=== PATIENT | male | born 1980 | race Caucasian/White ===

== ENCOUNTER 2020-08-03 17:00 | Emergency (ER) | payer OTHER, SELFPAY ==
[2020-08-03 17:01] VITALS: BP 83/64; PULSE 96; RESP 14; TEMP 36.9; O2SAT 94; BMI 28.2
[2020-08-03 17:09] VITALS: BP 92/62; PULSE 96; RESP 18; O2SAT 92
[2020-08-03 17:10] VITALS: O2SAT 91
[2020-08-03 17:11] VITALS: O2SAT 91
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
[2020-08-03 17:15] VITALS: BP 91/52; PULSE 91; RESP 18; O2SAT 94
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
[2020-08-03 17:43] LABS: Basophils # 0.1 10^3/uL (0.0-0.1); Basophils % 0.9 %; Eosinophils # 0.1 10^3/uL (0.0-0.8); Eosinophils % 1.1 %; Hematocrit 39.6 % (42.0-52.0); Hemoglobin 13.5 g/dL (11.7-16.6); Lymphocytes # 4.1 10^3/uL (0.8-4.8); Lymphocytes % 46.4 %; Mean Corpuscular HGB Conc 34.1 g/dL (30.0-36.0); Mean Corpuscular Hemoglobin 32.6 pg (28.0-34.0); Mean Corpuscular Volume 95.7 fL (80-94); Mean Platelet Volume 10.5 fL (7.4-10.4); Monocytes # 0.8 10^3/uL (0.2-0.9); Monocytes % 8.8 %; Neutrophils # 3.66 10^3/uL (1.8-7.7); Neutrophils % 42.1 %; Nucleated Red Blood Cells % 0 %; Platelet Count 225 10^3/cmm (130-400); Red Blood Count 4.14 10^6/uL (4.1-5.3); Red Cell Distribution Width 12.1 % (12.1-15.1); White Blood Count 8.7 10^3/uL (4.0-10.0)
[2020-08-03 18:02] LABS: Alanine Aminotransferase 156 U/L (0-41); Albumin Level 4.2 g/dL (3.5-5.2); Alcohol Level 94 mg/dL (0-10); Alkaline Phosphatase 65 IU/L (40-130); Anion Gap 18.9 (5-19); Aspartate Amino Transferase 261 U/L (0-40); Blood Urea Nitrogen 17 mg/dL (6-20); Carbon Dioxide 21 mmol/L (22-29); Chloride 95 mmol/L (98-107); Globulin 2.2 g/dL (1.3-4.6); Glomerular Filtration Rate 123.7 mL/min (90-130); Glucose 137 mg/dL (65-115); Osmolality Calculated 276 mOsm/kg (285-295); Potassium 3.9 mmol/L (3.5-5.1); Sodium 131 mmol/L (136-145); Total Bilirubin 0.3 mg/dL (0.15-1.2); Total Protein 6.4 g/dL (6.6-8.7)
[2020-08-03 18:03] LABS: Lactate (Lactic Acid level) 4.2 mmol/L (0.5-2.2)
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
[2020-08-03 18:16] LABS: Specific Gravity, Urine 1.025 (1.005-1.030); Urine Appearance Clear (CLEAR); Urine Color Yellow (Yellow); pH Urine 5 (5-7)
[2020-08-03 18:17] LABS: Add Urine Microscopic? YES; Bilirubin Urine Neg (Negative); Blood Urine Neg (Negative); Glucose Urine UA 2+ (Normal); Ketones Urine 1+ (Negative); Leukocyte Esterase Urine Negative (Negative); Nitrate Urine Negative (Negative); Protein Urine 1+ (Negative); Urobilinogen Urine Norm (Negative)
[2020-08-03 18:26] LABS: Amphetamines Screen Urine Positive (Negative); Barbiturates Screen Urine Negative (Negative); Benzodiazepines Screen Urine Positive (Negative); Cocaine Screen Urine Negative (Negative); Opiate Screen Urine Negative (Negative); PCP Screen Urine Negative (Negative); THC Screen Urine Positive (Negative); WBC Urine 0-4 /hpf (0-5)
[2020-08-03 18:27] LABS: Add Urine Culture? No; Amorphous Sediment Urine 2+ /hpf; Bacteria Urine TRACE /hpf; Mucus Urine 1+ /hpf
[2020-08-03] MEDS: sodium chloride 0.9% 1,000 ML 999 ML IV (18:47)
[2020-08-03 19:30] VITALS: BP 107/65; PULSE 90; RESP 21; O2SAT 98
== END 2020-08-03 19:38 | disposition short-term general hospital (02) ==
PROVIDERS: Emergency Provider Family Medicine; PCP Family Medicine
DX: S22.22XA Fracture of body of sternum, initial encounter for closed fracture (principal); S26.91XA Contusion of heart, unspecified with or without hemopericardium, initial encounter; S22.31XA Fracture of one rib, right side, initial encounter for closed fracture; S09.8XXA Other specified injuries of head, initial encounter; I31.2 Hemopericardium, not elsewhere classified; F19.10 Other psychoactive substance abuse, uncomplicated; V59.40XA Driver of pick-up truck or van injured in collision with unspecified motor vehicles in traffic accident, initial encounter; I10 Essential (primary) hypertension; E11.9 Type 2 diabetes mellitus without complications
CPT/HCPCS: 36415; 51702; 70450; 71045; 71250; 72125; 74176; 80053; 80306; 80307; 81001; 83605; 85025; 86850; 86900; 96361; 96374; 99285; J0131; J7030

== ENCOUNTER → 2021-12-08 16:43 | Outpatient (BNVA) | payer OTHER, SELFPAY | PROVIDERS: PCP Family Medicine; Visit Provider Registered Nurse Neonatal Intensive Care | DX: Z20.822 Contact with and (suspected) exposure to COVID-19 (principal) | CPT/HCPCS: 87635 ==

== ENCOUNTER 2023-06-22 23:02 | Emergency (ER) | payer OTHER, SELFPAY ==
[2023-06-22 23:04] VITALS: BP 150/107; PULSE 96; RESP 16; TEMP 36.4; O2SAT 99; BMI 25.0
--- NOTE | 2023-06-22 23:45 | XRR_ITS ---
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 Views: 1 view. COMPARISON: [place] [id number] 08/03/2020 5:48 PM FINDINGS: Lungs: No consolidation or pulmonary edema. Pleural spaces: No pleural effusion. No pneumothorax. Heart/Mediastinum: Cardiomediastinal silhouette is normal in size. Bones/joints: No acute fractures. XR/XR chest 1V portable [id number] IMPRESSION: No acute findings.
--- NOTE | 2023-06-22 23:45 | ED_ITS ---
HPI - URI/Sore Throat General: Chief Complaint: Upper Respiratory Infection Stated Complaint: sob, Time Seen by Provider: 06/22/23 23:27 Source: patient Mode of arrival: ambulatory Limitations: no limitations History of Present Illness: 43yo male presents with family for evalu ation of sudden onset shortness of breath that occurred approximately 30 minutes prior to arrival. Patient states it came on suddenly, so he decided to come and have it checked. Family states he is out of his propranolol. Reports he takes it twice daily for blood pressure. Family also reports that he took an [id number] medication for pinworms last week and they are concerned that he may still have worms. Patient is also concerned about his nose. Patient denies fever, cough, congestion, recent illness, vomiting, diarrhea, recreational drug use. 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 He is able to give history with no difficulty. Family is at bedside and assisting with history. HENMT: COMMON NORMALS: normocephalic HEAD & SCALP: normocephalic NOSE: Abnormal mucous membranes and turbinates present (Dry, no nasal hair visualized) erythematous Eye: GENERAL EYE: appearance normal, both eyes and all related structures Neck/C-Spine: COMMON NORMALS: full ROM Resp: COMMON NORMALS: normal respiratory effort and clear to auscultation bilaterally EFFORT & INSPECTION: Yes able to speak in complete sentences AUSCULTATION: clear to auscultation bilaterally Cardio: COMMON NORMALS: regular rate and regular rhythm RATE: regular rate RHYTHM: regular rhythm Extremity: COMMON NORMALS: full ROM Neuro: SENSORIUM/ORIENTATION: Yes alert Psych: COMMON NORMALS: cooperative Course Vital Signs: Vital signs: Vital Signs Temperature 97.6 F 06/22/23 23:04 Pulse Rate 96 06/22/23 23:04 Respiratory Rate 16 06/22/23 23:04 Blood Pressure 150/107 06/22/23 23:04 Pulse Oximetry 99 06/22/23 23:04 MDM - URI/Sore Throat Medical Decision Making 43yo male here with family for sudden onset shortness of breath that occurred approximately 30 minutes prior to arrival. Patient states that it came on all of a sudden. Reports that he is also out of his blood pressure medication, which is why his blood pressure was elevated. Patient states that he did have some beer while in the waiting room, but denies any recreational drug use. Patient is also concerned of possibly having items coming out of his nose. He was recently treated for pinworm infection and they are concerned that he may be infected again. Patient denies fever, cough, congestion, difficulty breathing, chest pain, abdominal pain, vomiting, diarrhea. Patient states that he does smoke and has done so for approximately 30 years. Patient is nontoxic in appearance. Vital signs are stable. Chart review does reveal patient has a history of drug abuse. He in July 2020 he did test positive for amphetamines, benzodiazepines, and marijuana. No acute abnormalities were noted on the chest x-ray. Discussed findings with patient. Patient reports that he was feeling short of breath, but is feeling much better now. Discussed with patient and family that if he is still having rectal itching with worms, we can prescribe medication.. Discussed with patient use of nasal saline and possibly even Vaseline to keep his nasal passages moist. Recommend he follow-up with primary care for recheck in about a week. Advised to return to the emergency department if any rapid worsening symptoms and as needed. Differential Diagnosis Likely upper respiratory infection, sinusitis and viral infection Medical Records I reviewed the patient's medical records. Lab Data I reviewed the patient's lab results. Radiology Impressions Chest X-Ray 06/22/23 23:45 IMPRESSION: No acute findings. No radiology studies performed this visit Discharge Plan Discharge Patient Disposition: Home Clinical Impression: Nasal dryness, Pinworms Condition: Stable Prescriptions: New albendazole 200 mg tablet 200 mg PO .q2w Qty: 2 0RF No Action albuterol sulfate [Ventolin HFA] 90 mcg/actuation HFA aerosol inhaler 2 puff inhalation Q6H PRN (Reason: shortness of breath or wheezing) Qty: 8.5 0RF glipizide 10 mg tablet extended release 24hr 10 mg PO DAILY Qty: 30 11RF insulin glargine [Lantus Solostar U-100 Insulin] 100 unit/mL (3 mL) insulin pen 20 unit SUBCUT QAM Qty: 15 11RF (DME) Blood Glucose Test Strip See Rx Instructions .MEDSUPPLY Qty: 200 12RF Rx Instructions: Use as directed with glucometer to check blood sugar (DME) blood-glucose meter Misc See Rx Instructions .MEDSUPPLY Qty: 1 0RF Rx Instructions: Use as directed for checking blood sugar (DME) lancets Misc See Rx Instructions .MEDSUPPLY Qty: 200 12RF Rx Instructions: Use as directed to prick skin for blood sugar checks propranolol 20 mg tablet 10 mg PO BID Qty: 60 11RF Discharge Orders: Discharge ED (Routine); Ordered 06/23/23 Ordered By: Radu Lawson Referrals: Obie Sinha MD [Primary Care Provider] - Discharge Diet: Usual diet Discharge Activity: Resume usual activity Patient Instructions: Pinworms Activity Restrictions/Additional Instructions: Albendazole has been sent to your pharmacy for the pinworm infection. Take 1 tablet as soon as you receive the prescription in the next 1 and 2 weeks See provided handout with information about pinworms Your nasal passages were noted to be very dry. Use nasal saline to help keep the nasal passages moist You may also need to use a cool-mist humidifier in the home to keep the passages moist Follow-up with your doctor in about a week for recheck, sooner if needed Return to the emergency department if any rapid worsening symptoms and as needed Coding Level of Care Code ED Instructional Developer for Anil Valadez
[2023-06-23 00:57] VITALS: BP 117/84; PULSE 86; O2SAT 96
== END 2023-06-23 00:57 | disposition home or self-care (01) ==
PROVIDERS: Emergency Provider Nurse Practitioner; PCP Family Medicine
DX: J34.89 Other specified disorders of nose and nasal sinuses (principal); B80 Enterobiasis; Z79.84 Long term (current) use of oral hypoglycemic drugs; Z79.4 Long term (current) use of insulin; E11.9 Type 2 diabetes mellitus without complications
CPT/HCPCS: 71045; 99283

== ENCOUNTER 2023-07-06 17:12 | Inpatient (IN) | payer OTHER, SELFPAY ==
[2023-07-06 17:15] VITALS: BP 148/87; PULSE 110; RESP 18; TEMP 36.8; O2SAT 99; BMI 25.0
[2023-07-06 17:26] VITALS: BP 148/87; PULSE 110; RESP 18; O2SAT 99
--- NOTE | 2023-07-06 17:32 | W.ED.PSYCHS ---
HPI - Psych General: Chief Complaint: Psychiatric Symptoms Stated Complaint: 96 hour old Time Seen by Provider: 07/06/23 17:17 Source: patient and police Mode of arrival: ambulatory Limitations: no limitations History of Present Illness: 43-year-old male is brought in by police for 96-hour hold that he was placed under by his family. Patient's son had recently killed himself per police his family states that he has been making suicidal statements they feel that a 96-hour hol he also been having some hallucinations patient is depressed. Currently denies being suicidal Review of Systems Const: Denies: fever(s), chills, body aches or change in appetite ENMT: Denies: throat pain or dental pain Card: Denies: chest pain Resp: Denies: dyspnea GI: Denies: abdominal pain, nausea, vomiting or diarrhea Musc: Denies: neck pain or back pain Skin/Breast: Denies: rash Neuro: Denies: headache(s) PFS ED PFSH: Medical History Abdominal pain Anxiety Diabetes mellitus type 2, controlled Elevated liver function tests Physical Exam Const: COMMON NORMALS: no acute distress, patient oriented x3 and healthy appearing HENMT: COMMON NORMALS: normocephalic and atraumatic HEAD & SCALP: normocephalic and atraumatic Eye: COMMON NORMALS: Equal, round and reactive pupils present and EOMs intact bilaterally PUPIL: Yes Equal, round and reactive pupils present Neck/C-Spine: COMMON NORMALS: full ROM and supple Chest: COMMONS NORMALS: normal inspection of the chest and normal palpation of entire chest wall Resp: COMMON NORMALS: normal respiratory effort and clear to auscultation bilaterally AUSCULTATION: clear to auscultation bilaterally Cardio: COMMON NORMALS: regular rate, regular rhythm and No murmurs present (Cardio) RATE: regular rate RHYTHM: regular rhythm Extremity: COMMON NORMALS: normal to inspection and full ROM Neuro: COMMON NORMALS: patient oriented x3, moves all extremities and no focal motor deficits Psych: COMMON NORMALS: mental status grossly normal, Normal thought process present and cooperative MOOD & AFFECT: Yes depressed mood THOUGHT PROCESS: Normal thought process present Skin: COMMON NORMALS: no rashes or lesions noted and no wounds GENERAL SKIN EXAM: no rashes or lesions noted Course Vital Signs: Vital signs: Vital Signs Temperature 98.3 F 07/06/23 17:15 Pulse Rate 110 H 07/06/23 17:26 Respiratory Rate 18 07/06/23 17:26 Blood Pressure 148/87 07/06/23 17:26 Pulse Oximetry 99 07/06/23 17:26 Oxygen Delivery Me thod Room Air 07/06/23 17:26 MDM - Psych Medical Decision Making Patient presents for suicidal ideation patient is medically cleared spoke to Dr. Avery will admit to the NPU. Medical Records I reviewed the patient's medical records. Lab Data I reviewed the patient's lab results. 07/06/23 18:04 07/06/23 18:04 Laboratory Results WBC 8.02 10^3/uL (3.29-11.43) 07/06/23 18:04 RBC 4.78 10^6/uL (3.85-5.65) 07/06/23 18:04 Hgb 14.60 g/dL (11.27-16.99) 07/06/23 18:04 Hct 43.3 % (37-53) 07/06/23 18:04 MCV 90.6 fl (82-101) 07/06/23 18:04 MCH 30.5 pg (27-33) 07/06/23 18:04 MCHC 33.7 g/dL (30-55) 07/06/23 18:04 RDW 12.2 % (12.1-15.1) 07/06/23 18:04 Plt Count 295 10^3/cmm (157-399) 07/06/23 18:04 MPV 9.6 fL (7.4-10.4) 07/06/23 18:04 Neut % (Auto) 59.5 % 07/06/23 18:04 Lymph % (Auto) 30.8 % 07/06/23 18:04 [place] % (Auto) 6.2 % 07/06/23 18:04 Eos % (Auto) 2.4 % 07/06/23 18:04 Baso % (Auto) 0.9 % 07/06/23 18:04 Neut # (Auto) 4.77 10^3/uL (1.8-7.7) 07/06/23 18:04 Lymph # (Auto) 2.5 10^3/uL (0.8-4.8) 07/06/23 18:04 [place] # (Auto) 0.5 10^3/uL (0.2-0.9) 07/06/23 18:04 Eos # (Auto) 0.2 10^3/uL (0.0-0.8) 07/06/23 18:04 Baso # (Auto) 0.1 10^3/uL (0.0-0.1) 07/06/23 18:04 Nucleated RBC % (auto) 0 % 07/06/23 18:04 Nucleated RBCs # 0.0 /100WBC 07/06/23 18:04 Sodium 137 mmol/L (136-145) 07/06/23 18:04 Potassium 4.3 mmol/L (3.5-5.1) 07/06/23 18:04 Chloride 101 mmol/L (98-107) 07/06/23 18:04 Carbon Dioxide 25 mmol/L (22-29) 07/06/23 18:04 Anion Gap 15.3 (5-19) 07/06/23 18:04 BUN 13 mg/dL (6-20) 07/06/23 18:04 Creatinine 0.8 mg/dL (0.7-1.2) 07/06/23 18:04 GFR Calculation 104.5 mL/min (90-130) 07/06/23 18:04 Glucose 283 mg/dL (65-115) H 07/06/23 18:04 Calculated Osmolality 294 mOsm/kg (285-295) 07/06/23 18:04 Calcium 9.4 mg/dL (8.5-10.5) 07/06/23 18:04 Total Bilirubin 0.2 mg/dL (0.15-1.2) 07/06/23 18:04 AST 13 U/L (0-40) 07/06/23 18:04 ALT 21 U/L (0-41) 07/06/23 18:04 Alkaline Phosphatase 96 U/L (40-130) 07/06/23 18:04 Total Protein 6.8 g/dL (6.6-8.7) 07/06/23 18:04 Albumin 3.9 g/dL (3.5-5.2) 07/06/23 18:04 Globulin 2.9 g/dL (1.3-4.6) 07/06/23 18:04 Salicylates < 0.3 mg/dL (3-10) L 07/06/23 18:04 Acetaminophen < 5.0 ug/mL (10-30) L 07/06/23 18:04 Ethyl Alcohol < 10 mg/dL (0-10) 07/06/23 18:04 No radiology studies performed this visit Discharge Plan Discharge Patient Disposition: Admitted As Inpatient Clinical Impression: Suicidal ideation Condition: Stable Coding Level of Care Code ED Planer Setup Operator for Anil Valadez
[2023-07-06] MEDS: LORazepam 1 mg Tablet PO (18:12)
--- NOTE | 2023-07-06 18:16 | PC.NURSE ---
PATIENT MOTHER AND FATHER PRESENTED TO ED. PATIENT HAS VISITATION AND FOR RECENTLY SON ON WEDNESDAY AND WEDNESDAY AND THEY ARE CONCERNED ABOUT HIS 96 HR PAPERWORK PREVENTING HIM FROM COMING. PROVIDER AND RUST PROOFER IN NPU NOTIFIED.
[2023-07-06 18:23] LABS: Basophils # 0.1 10^3/uL (0.0-0.1); Basophils % 0.9 %; Eosinophils # 0.2 10^3/uL (0.0-0.8); Eosinophils % 2.4 %; Hematocrit 43.3 % (37-53); Lymphocytes # 2.5 10^3/uL (0.8-4.8); Lymphocytes % 30.8 %; Mean Corpuscular HGB Conc 33.7 g/dL (30-55); Mean Corpuscular Hemoglobin 30.5 pg (27-33); Mean Corpuscular Volume 90.6 fl (82-101); Mean Platelet Volume 9.6 fL (7.4-10.4); Monocytes # 0.5 10^3/uL (0.2-0.9); Monocytes % 6.2 %; Neutrophils # 4.77 10^3/uL (1.8-7.7); Neutrophils % 59.5 %; Nucleated Red Blood Cells % 0 %; Platelet Count 295 10^3/cmm (157-399); Red Blood Count 4.78 10^6/uL (3.85-5.65); Red Cell Distribution Width 12.2 % (12.1-15.1); White Blood Count 8.02 10^3/uL (3.29-11.43)
[2023-07-06] MEDS: nicotine 21 mg Patch 1 PATCH TRANSDERMA (18:46)
[2023-07-06 18:49] LABS: Alanine Aminotransferase 21 U/L (0-41); Albumin Level 3.9 g/dL (3.5-5.2); Alkaline Phosphatase 96 U/L (40-130); Anion Gap 15.3 (5-19); Aspartate Amino Transferase 13 U/L (0-40); Blood Urea Nitrogen 13 mg/dL (6-20); Calcium 9.4 mg/dL (8.5-10.5); Carbon Dioxide 25 mmol/L (22-29); Chloride 101 mmol/L (98-107); Globulin 2.9 g/dL (1.3-4.6); Glomerular Filtration Rate 104.5 mL/min (90-130); Glucose 283 mg/dL (65-115); Osmolality Calculated 294 mOsm/kg (285-295); Potassium 4.3 mmol/L (3.5-5.1); Sodium 137 mmol/L (136-145); Total Bilirubin 0.2 mg/dL (0.15-1.2); Total Protein 6.8 g/dL (6.6-8.7)
[2023-07-06 18:51] LABS: Acetaminophen < 5.0 ug/mL (10-30); Alcohol Level < 10 mg/dL (0-10); Salicylate < 0.3 mg/dL (3-10)
[2023-07-06 19:28] VITALS: BP 152/81; PULSE 97; RESP 18; O2SAT 99
[2023-07-06 19:39] VITALS: BP 142/99; PULSE 100; RESP 18; TEMP 36.8; O2SAT 100
--- NOTE | 2023-07-06 20:22 | PC.NURSE ---
96 Pt served with copy of 96 Hour Hold rights by this RN and security. Pt A&Ox3, all questions answered.
[2023-07-06] MEDS: OLANZapine 5 mg ODT PO (21:32)
[2023-07-06 22:05] LABS: Glucose Point of Care 352 mg/dL (70-110)
[2023-07-07] MEDS: trazodone 50 mg Tablet PO (01:10)
[2023-07-07] MEDS: nicotine 4 mg lozenge MUCOUS MEM (01:10)
[2023-07-07] MEDS: haloperidol 5 mg Tablet PO ×2 (04:57→15:54)
[2023-07-07 06:00] VITALS: RESP 18
[2023-07-07 07:28] VITALS: PULSE 77; RESP 15; O2SAT 97
[2023-07-07 08:13] LABS: Glucose Point of Care 289 mg/dL (70-110)
[2023-07-07] MEDS: propranolol 20 mg Tablet 10 MG PO ×2 (11:39→20:10)
[2023-07-07] MEDS: insulin glargine 100 units/1 mL 20 UNIT SUBCUT (11:45)
[2023-07-07 11:50] LABS: Glucose Point of Care 337 mg/dL (70-110)
--- NOTE | 2023-07-07 12:10 | PC.NURSE ---
Patient resting in bed with eyes closed and never opened them when talking with this RN. When attempting to administer insulin he stated he could do it himself, but was informed staff had to administer medications. He then said he would like to wait until later. This RN told him his blood sugar was in the 300s and that he really needed to take it. Patient was hesitant, but did agree to take it.
[2023-07-07 14:00] VITALS: BP 113/75; PULSE 64; RESP 15; TEMP 36.6; O2SAT 100
--- NOTE | 2023-07-07 15:50 | W.PM.NPUH&PS ---
Providers/Chief Complaint Admitting Physician: Kirit Blankenship MD Primary Care Provider: Obie Sinha MD Chief Complaint: 96 hour old HPI NPU History of Present Illness Jarett Hernandez (Chris) is a 43 year old male brought into the emergency department on a 96-hour hold by the police after the patient had made threats to kill himself to his family members. Patient was admitted to the neuropsychiatric unit for further evaluation and treatment. Patient was wholly noncompliant during the interview. The patient's affidavit reviewed had stated that patient had apparently been under the influence of some unknown substances and was having increased paranoia and hallucinations. The patient's son had killed himself 1 week ago and the patient had made statements that he wished to join him. He had also made threatening statements according to affidavits that he thought that the police had been responsible for murdering his son. He had apparently made a statement that he thinks that the FBI and the [employer] along with his ex- will pay for the actions that cause the of his son. Patient did not admit to the use of illicit substances. Patient's ex- had stated that the patient had required removal from his ex-'s home as she had made complaint stating that Jarett had threatened her life. 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 Patient's ex- and stated that she had received multiple text messages stating that the FBI and [employer] were responsible for his son's . Patient was unwilling to discuss anything further and stated that he simply needed to rest his eyes. Inpatient psychiatric history: Unknown outpatient psychiatric services: None reported allergies: Klonopin per records medical history: History of type 2 diabetes, history of elevated liver function test per chart, history of intestinal parasites. surgical history: None reported drug and alcohol history: Unknown, per previous records some evidence of amphetamine abuse per past records. Current medications: Albendazole, glipizide, insulin, propranolol family psychiatric history: Unspecified mood disorder-son social history: Unknown patient has 2 biological sons from us ex-. The patient's 1 son had completed suicide 1 week ago today. Patient's other son currently lives with patient's ex-. His legal history is unknown. Meds NPU Home Medications Medication Instructions Recorded Confirmed Last Taken Type albuterol sulfate 90 mcg/actuation 2 puff inhalation Q6H PRN 12/08/21 07/06/23 Unknown Rx aerosol inhaler (Ventolin HFA) shortness of breath or wheezing #8.5 grams blood sugar diagnostic (Blood #200 ea 06/03/23 07/06/23 Unknown Rx Glucose Test strips) blood-glucose meter #1 ea 06/03/23 07/06/23 Unknown Rx glipizide 10 mg tablet, extended 10 mg PO DAILY #30 tabs 06/03/23 07/06/23 07/06/23 Rx release 24 hr insulin glargine 100 unit/mL (3 20 unit (0.2 mL) SUBCUT QAM #15 mL 06/03/23 07/06/23 07/06/23 Rx mL) subcutaneous pen (Lantus Solostar U-100 Insulin) lancets #200 ea 06/03/23 07/06/23 Unknown Rx propranolol 20 mg tablet 10 mg (1/2 x 20 mg) PO BID #60 tabs 06/03/23 07/06/23 07/06/23 Rx albendazole 200 mg tablet 200 mg PO .q2w #2 tabs 06/23/23 07/06/23 Unknown Rx Allergies Allergy/AdvReac Type Severity Reaction Status Date / Time klonopin Allergy aggitation Uncoded 06/09/23 11:06 [facility] N[facility] PFS: Medical History Abdominal pain Anxiety Diabetes mellitus type 2, controlled Elevated liver function tests Mental Status Exam MSE Comments: Patient was lying in bed he appeared to have long care. He kept his eyes closed and was awake for only a few seconds which time he closed his eyes. He refused to answer any questions. His gait appeared within normal limits. His hygiene is poor. There is no evidence of any abnormal involuntary motor movements tics or tremors appreciated. His mood was not endorsed. His affect was irritable. He did not appear to be responding internal stimuli. There did appear to be some evidence of paranoid delusions regarding the FBI and the [employer]. His recent and remote memory were not tested. His insight is impaired. His judgment is poor. His impulse control appeared poor as well. He did not endorse nor deny any homicidal or suicidal ideation. Vitals/I&O/Wt Last Vital Signs Temp 97.8 F 07/07/23 14:00 Pulse 64 07/07/23 14:00 Resp 15 07/07/23 14:00 BP 113/75 07/07/23 14:00 Pulse Ox 100 07/07/23 14:00 O2 Del Method Room Air 07/07/23 07:28 Weight last 48 hrs Weight 88.451 kg Data NPU 07/06/23 18:04 07/06/23 18:04 A&P Assessment and plan (1) Unspecified psychosis: (2) Stimulant abuse: (3) Depression, unspecified: Plan 43-year-old male with reported history of stimulant abuse who apparently has been engaging in drug use with increased paranoia with alleged homicidal and suicidal threats that have been more obvious since the suicide of his son 1 week ago. Patient will continue to require acute inpatient hospitalization for psychosis. 1. ?Encourage individual, group and milieu therapy. 2. Recommend sober living treatment at the highest level of care to which the patient is willing to commit. 3. Continue q-15 minute checks for safety 4. Will attempt to gather collateral information. Recommend urine drug screen. Involuntary Hold Information 96 Hour Hold: 96 Hour Involuntary Admission: Yes Attestations NPU Medical Necessity Statement*: Inpatient hospitalization is medically necessary and deemed to be the clinically appropriate intervention at this time. Patient will be initiated on medications and will be adjusted as clinically indicated. The patient will be hospitalized for at least 2 midnights. Patient's likely length of stay is 5 to 7 days. Coding Level of Care Code Acute Code for Chg Fwd Diagnoses Unspecified psychosis F29 Stimulant abuse F15.10 Depression, unspecified F32.A
[2023-07-07] MEDS: nicotine 21 mg Patch 1 PATCH TRANSDERMA (15:55)
[2023-07-07 18:15] LABS: Glucose Point of Care 258 mg/dL (70-110)
[2023-07-07 20:22] LABS: Glucose Point of Care 358 mg/dL (70-110)
--- NOTE | 2023-07-07 20:35 | PC.NURSE ---
IN BED RESTING AROUSES TO VOICE. DENIES PAIN, SI/HI AND AVH AT THIS TIME PT IS NOTED TO HAVE A FLAT AFFECT AND DOES NOT ELABORATE ON QUESTIONS OR WHY HE IS HERE, ONLY STATED I DON'T WANT TO TALK. PT DID RELUCTANTLY TAKE HIS PM MEDS WITH LOTS OF ENCOURAGEMENT. RATES DEPRESSION AND ANXIETY 0/10. PTS BEHAVIOR IS OBSERVED TO BE WITHDRAWN AND ISOLATES, DEPRESSED MOOD NOTED. ALL QUESTIONS ANSWERED AND SUPPORT WAS VOICED.
[2023-07-07 21:20] LABS: Amphetamines Screen Urine Positive (Negative); Barbiturates Screen Urine Negative (Negative); Benzodiazepines Screen Urine Positive (Negative); Cocaine Screen Urine Negative (Negative); Opiate Screen Urine Negative (Negative); PCP Screen Urine Negative (Negative); THC Screen Urine Negative (Negative)
[2023-07-07 22:00] VITALS: BP 99/61; PULSE 82; RESP 18; O2SAT 96
[2023-07-08 06:00] VITALS: BP 138/54; PULSE 112; RESP 18; TEMP 36.8; O2SAT 94
[2023-07-08] MEDS: haloperidol 5 mg Tablet PO ×3 (08:21→20:07)
[2023-07-08] MEDS: propranolol 20 mg Tablet 10 MG PO ×2 (08:21→20:07)
[2023-07-08] MEDS: insulin glargine 100 units/1 mL 20 UNIT SUBCUT (08:23)
[2023-07-08 08:24] LABS: Glucose Point of Care 227 mg/dL (70-110)
--- NOTE | 2023-07-08 08:36 | PC.NURSE ---
pt is resistive to care. pt initially did not want to take medications however after this nurse provided education pt was more willing to take medication. pt currently is unwilling to cooperate with assessment will attempt at a later time. pt current needs are met at this time. pt current needs are met at this time.
[2023-07-08] MEDS: nicotine 21 mg Patch 1 PATCH TRANSDERMA (12:46)
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
[2023-07-08 14:00] VITALS: BP 109/72; PULSE 79; RESP 16; TEMP 37; O2SAT 98
--- NOTE | 2023-07-08 17:03 | PC.NURSE ---
PT RECIEVED HALDOL 5MG FOR AGITATION THIS WAS DEEMED EFFECTIVE.
[2023-07-08] MEDS: OLANZapine 5 mg ODT PO (18:32)
[2023-07-08] MEDS: trazodone 50 mg Tablet PO (20:08)
[2023-07-08 20:14] VITALS: BP 104/63; PULSE 80; RESP 18; TEMP 36.8; O2SAT 96
[2023-07-08 20:14] LABS: Glucose Point of Care 308 mg/dL (70-110)
--- NOTE | 2023-07-08 20:20 | PC.NURSE ---
IN BED RESTING, AROUSES TO VOICE. DENIES SI/HI AND AVH AT THIS TIME. DENIES PAIN. PT IS NOTED TO HAVE A DEPRESSED MOOD AND FLAT AFFECT. RATES ANXIETY 5/10 AND DEPRESSION 0/10. PT REQUESTS MEDS TO ASSIST WITH SLEEP AND REDUCE ANXIETY. PT WAS GIVEN TRAZODONE 50 MG FOR INSOMNIA AND HALDOL 5 MG ORDERED FOR INCREASED ANXIETY. PT WAS OFFERED TO COME AND SPEAK TO STAFF IF NEEDED DUE TO PTS SON VISITATION BEING TONIGHT AND PT UNABLE TO ATTEND. PT STATES HE WILL LET STAFF KNOW IF HE NEEDS TO TALK TONIGHT. ALL QUESTIONS WERE ANSWERED AND SUPPORT VOICED.
[2023-07-09 06:00] VITALS: RESP 17
--- NOTE | 2023-07-09 06:46 | PC.NURSE ---
Attempted to obtain patients vitals. Patient would not wake up. RR documented. Charge Nurse notified.
--- NOTE | 2023-07-09 07:35 | P.NPUPN_ITS ---
Subjective NPU 2 Subjective: Patient presented today reporting that he wants to be discharged. We ultimately agreed that we would allow him to leave with police for approximately 1 hour to go over to the home and have a private viewing and private time with his son's body. We discussed that we wanted him to return and be able to demonstrate that he is still doing fine and safe for discharge and we will consider discharging in the morning. Mental Status Exam 2 MSE Comments: This is a well-nourished well-developed white male in hospital scrubs with limited grooming but adequate eye contact. No abnormal movements except for mild psychomotor retardation. Mostly cooperative with exam in mild distress. Speech was slightly decreased rate normal volume. Mood described as better, affect slightly subdued. Thought process organized. Thought content: Patient denied suicidal or homicidal ideation, there were no delusions reported or noted with him denying the insertions of things about paranoia surrounding FBI, RO[place] or his ex or 11-year-old son, he denied any auditory or visual hallucinations. Attention and concentration were intact and memory appeared unreliable but it was unclear whether that was intentionally but none were formally tested. He is alert and oriented x 3. Insight and judgment limited and impulse control is impaired. Vitals/I&O/Wt Last Vital Signs Temp 98.3 F 07/08/23 20:14 Pulse 80 07/08/23 20:14 Resp 17 07/09/23 06:00 BP 104/63 07/08/23 20:14 Pulse Ox 96 07/08/23 20:14 O2 Del Method Room Air 07/08/23 20:14 Data NPU 07/06/23 18:04 07/06/23 18:04 A&P Assessment and plan (1) Unspecified psychosis: (2) Stimulant abuse: (3) Depression, unspecified: Plan 43-year-old male with reported history of stimulant abuse who apparently has been engaging in drug use with increased paranoia with alleged homicidal and suicidal threats that have been more obvious since the suicide of his son 1 week ago. Patient will continue to require acute inpatient hospitalization for psychosis. 1. ?Encourage individual, group and milieu therapy. 2. Recommend sober living treatment at the highest level of care to which the patient is willing to commit. 3. Continue q-15 minute checks for safety 4. Will attempt to gather collateral information. Drug screen positive for amphetamines and benzodiazepines. 5. We will consider the medications for anxiety but avoid benzodiazepines. 6. Tentative plan for discharge in the morning. Involuntary Hold Information 2 96 Hour Hold: 96 Hour Involuntary Admission: Yes Attestations NPU 2 Medical Necessity Statement*: Inpatient hospitalization is medically necessary and deemed to be the clinically appropriate intervention at this time. Patient will be initiated on medications and will be adjusted as clinically indicated. Patient's likely length of stay is 1-2 days. Coding Level of Care Code Acute Code for Chg Fwd Diagnoses Unspecified psychosis F29 Stimulant abuse F15.10 Depression, unspecified F32.A
--- NOTE | 2023-07-09 08:34 | PC.NURSE ---
Patient refused accucheck this morning. Patient has been educated on the importance of testing, but still refused.
--- NOTE | 2023-07-09 09:03 | PC.NURSE ---
During morning assessment, patient denies SI, HI, AVH, anxiety, and depression. Patient's answers were short.
[2023-07-09] MEDS: propranolol 20 mg Tablet 10 MG PO ×2 (09:14→20:09)
[2023-07-09] MEDS: insulin glargine 100 units/1 mL 20 UNIT SUBCUT (09:20)
[2023-07-09 10:19] LABS: Glucose Point of Care 338 mg/dL (70-110)
[2023-07-09] MEDS: hyDROXYzine 25 mg Capsule 50 MG PO (11:32)
--- NOTE | 2023-07-09 11:34 | PC.NURSE ---
ADMINISTERED VISTARIL 50MG PO FOR ANXIETY.
--- NOTE | 2023-07-09 12:14 | PC.NURSE ---
Patient left with [facility] at approximately 1212 for private viewing of son, whose is today.
--- NOTE | 2023-07-09 13:05 | PC.NURSE ---
Patient returned to unit with [facility] at 1304.
[2023-07-09] MEDS: OLANZapine 5 mg ODT PO (13:08)
[2023-07-09 14:00] VITALS: BP 117/72; PULSE 96; RESP 16; RESP 18; TEMP 36.8; O2SAT 96
--- NOTE | 2023-07-09 15:59 | PC.NURSE ---
patient refused vitals
[2023-07-09] MEDS: trazodone 50 mg Tablet PO (20:00)
[2023-07-09] MEDS: haloperidol 5 mg Tablet PO (20:00)
--- NOTE | 2023-07-09 20:09 | PC.NURSE ---
IN BED RESTING AROUSES TO VOICE. PT DENIES PAIN. DENIES SI/HI AND AVH AT THIS TIME. RATES ANXIETY 5/10 AND DEPRESSION 0/10. PT REQUESTS MEDICATIONS TO HELP HIM SLEEP AND SOMETHING FOR ANXIETY. PT WAS GIVEN TRAZODONE 50 MG ORDERED FOR INSOMNIA AND HALDO L 5 MG ORDERED FOR INCREASED ANXIETY. PT CONTINUES TO ASK IF THE IS GOING TO LET HIM OUT TODAY. PT INFORMED THAT DR. RODRIGUEZ WILL BE HERE SHORTLY AND HE WILL SEE HIM NOT TO WORRY. ALL QUESTIONS ANSWERED AND SUPPORT WAS VOICED.
[2023-07-09 20:43] LABS: Glucose Point of Care 450 mg/dL (70-110)
[2023-07-09 20:45] VITALS: BP 117/78; PULSE 85; RESP 18; TEMP 36.9; O2SAT 96
--- NOTE | 2023-07-09 21:34 | PC.NURSE ---
PT BLOOD GLUCOSE WAS 450 FOR THE HS CHECK. THIS RN OBSERVER SEVERAL COOKIE, CHIPS AND CRACKER WRAPPERS AT BEDSIDE. PT WAS UPSET ABOUT CNAL TAKING HIS BLOOD GLUCOSE AND STATED YOU ALL NEED TO STOP TAKING MY SUGAR, I ONLY CHECK IT ONCE A WEEK IF THAT. PT WAS EDUCATED ON THE NEED TO MONITOR HIS BLOOD SUGAR WHILE HE IS HERE, PT STATED WELL I KNOW ALL THAT BUT YOUR DONE DOING IT. PT WAS INFORMED SINCE BLOOD SUGAR WAS 450 WE WOULD NEED TO REPEAT THE TEST TO VERIFY IT, PT DECLINED. PT WAS EDUCATED THAT THIS RN WOULD LET DR. RODRIGUEZ KNOW THAT IT WAS 450 AND HE MAY GIVE ORDERS TO CORRECT IT. PT STATED I'M NOT TAKING ANYTHING FOR IT,ITS ALWAYS HIGH AND I DON'T CARE, BUT DO WHATEVER YOU NEED TO DO BUT I'M NOT TAKING ANYTHING ELSE. DR. RODRIGUEZ WAS NOTIFIED OF 450 BLOOD GLUCOSE, NO NEW ORDERS WERE RECEIVED. PT RESTING IN BED QUIETLY AT THIS TIME
--- NOTE | 2023-07-10 06:52 | PC.NURSE ---
pt ref vs resp documented
[2023-07-10 08:09] LABS: Glucose Point of Care 276 mg/dL (70-110)
[2023-07-10] MEDS: propranolol 20 mg Tablet 10 MG PO (08:24)
[2023-07-10] MEDS: insulin glargine 100 units/1 mL 20 UNIT SUBCUT (08:24)
--- NOTE | 2023-07-10 08:29 | PC.NURSE ---
Patient resting in bed. Denies si/hi. He states he feels fine and that he doesn't feel anxious or depressed at all. When asked if he was hearing or seeing anything that he thought might not be there he appeared taken aback and retorted, no I don't. Do you? Patient was reluctant to take his insulin this morning and said he didn't see the point. He said he was ready to leave so he could do it himself.
[2023-07-10] MEDS: hyDROXYzine 25 mg Capsule 50 MG PO (11:12)
--- NOTE | 2023-07-10 12:00 | PC.NURSE ---
Patient refused accucheck
[2023-07-10] MEDS: OLANZapine 5 mg ODT PO (12:05)
--- NOTE | 2023-07-10 13:32 | W.PM.NPUDCS ---
Diagnoses at Discharge Discharge Diagnosis (1) Unspecified psychosis: Status: Acute (2) Stimulant abuse: Status: Acute (3) Depression, unspecified: Status: Acute Reason for Visit Reason for Visit: 96 hour old Brief History: History of Present Illness Jarett Hernandez (Chris) is a 43 year old male brought into the emergency department on a 96-hour hold by the police after the patient had made threats to kill himself to his family members. Patient was admitted to the neuropsychiatric unit for further evaluation and treatment. Patient was wholly noncompliant during the interview. The patient's affidavit reviewed had stated that patient had apparently been under the influence of some unknown substances and was having increased paranoia and hallucinations. The patient's son had killed himself 1 week ago and the patient had made statements that he wished to join him. He had also made threatening statements according to affidavits that he thought that the police had been responsible for murdering his son. He had apparently made a statement that he thinks that the FBI and the [place] along with his ex- will pay for the actions that cause the of his son. Patient did not admit to the use of illicit substances. Patient's ex- had stated that the patient had required removal from his ex-'s home as she had made complaint stating that Jarett had threatened her life. 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 Patient's ex- and stated that she had received multiple text messages stating that the FBI and [place] were responsible for his son's . Patient was unwilling to discuss anything further and stated that he simply needed to rest his eyes. Inpatient psychiatric history: Unknown outpatient psychiatric services: None reported allergies: Klonopin per records medical history: History of type 2 diabetes, history of elevated liver function test per chart, history of intestinal parasites. surgical history: None reported drug and alcohol history: Unknown, per previous records some evidence of amphetamine abuse per past records. Current medications: Albendazole, glipizide, insulin, propranolol family psychiatric history: Unspecified mood disorder-son social history: Unknown patient has 2 biological sons from us ex-. The patient's 1 son had completed suicide 1 week ago today. Patient's other son currently lives with patient's ex-. His legal history is unknown. Hospital Course Hospital Course He slowly acclimated to the individual, group and milieu therapies provided. He had significant difficulties secondary to active drug use and recent of his son by suicide. He was not interested in starting medications and had limited interest in any sober living follow-up. We monitored him against the backdrop of the 96-hour hold in an attempt to monitor for safety. He ultimately was allowed to go to a reviewing with police escort where he and the police were the only ones from the public there. Ultimately he had modest improvement and was able to contract for safety outside of the hospital prior to discharge. He worked with the social work team for appropriate aftercare and follow-up appointments. During the hospitalization, patient had routine laboratory studies which were within normal limits except for few outliers.? Additionally there was a general medical evaluation which was also within normal limits and revealed no new acute processes. Discharge Summary: At the time of discharge, he denied psychosis or lethality.? Mood and anxiety were well managed.? Patient endorsed a plan to avoid all drugs of abuse and follow-up with the aftercare recommendations of the treatment team.? Patient was evaluated and deemed to be absent credible lethality, and had achieved the maximum benefit from an inpatient hospitalization, so was discharged. Involuntary Hold Information 96 Hour Hold: 96 Hour Involuntary Admission: Yes Mental Status Exam MSE Comments: This is a well-nourished well-developed white male in hospital scrubs with limited grooming but adequate eye contact. No abnormal movements except for mild psychomotor retardation. Mostly cooperative with exam in mild distress. Speech was slightly decreased rate normal volume. Mood described as better, affect slightly subdued. Thought process organized. Thought content: Patient denied suicidal or homicidal ideation, there were no delusions reported or noted with him denying the insertions of things about paranoia surrounding FBI, ROEL or his ex or 11-year-old son, he denied any auditory or visual hallucinations. Attention and concentration were intact and memory appeared more reliable but it was unclear whether discrepancies were intentional but none were formally tested. He is alert and oriented x 3. Insight and judgment limited and impulse control is improving. Discharge Data Studies Completed and Pending: Laboratory Results WBC 8.02 10^3/uL (3.2 9-11.43) 07/06/23 18:04 RBC 4.78 10^6/uL (3.8 5-5.65) 07/06/23 18:04 Hgb 14.60 g/dL (11.27 -16.99) 07/06/23 18:04 Hct 43.3 % (37-53) 07/06/23 18:04 MCV 90.6 fl (82-101) 07/06/23 18:04 MCH 30.5 pg (27-33) 07/06/23 18:04 MCHC 33.7 g/dL (30-55) 07/06/23 18:04 RDW 12.2 % (12.1-15.1 ) 07/06/23 18:04 Plt Count 295 10^3/cmm (157 -399) 07/06/23 18:04 MPV 9.6 fL (7.4-10.4) 07/06/23 18:04 Neut % (Auto) 59.5 % 07/06/23 18:04 Lymph % (Auto) 30.8 % 07/06/23 18:04 [place] % (Auto) 6.2 % 07/06/23 18:04 Eos % (Auto) 2.4 % 07/06/23 18:04 Baso % (Auto) 0.9 % 07/06/23 18:04 Neut # (Auto) 4.77 10^3/uL (1.8 -7.7) 07/06/23 18:04 Lymph # (Auto) 2.5 10^3/uL (0.8- 4.8) 07/06/23 18:04 [place] # (Auto) 0.5 10^3/uL (0.2- 0.9) 07/06/23 18:04 Eos # (Auto) 0.2 10^3/uL (0.0- 0.8) 07/06/23 18:04 Baso # (Auto) 0.1 10^3/uL (0.0- 0.1) 07/06/23 18:04 Nucleated RBC % (a uto) 0 % 07/06/23 18:04 Nucleated RBCs # 0.0 /100WBC 07/06/23 18:04 Sodium 137 mmol/L (136-1 45) 07/06/23 18:04 Potassium 4.3 mmol/L (3.5-5 .1) 07/06/23 18:04 Chloride 101 mmol/L (98-10 7) 07/06/23 18:04 Carbon Dioxide 25 mmol/L (22-29) 07/06/23 18:04 Anion Gap 15.3 (5-19) 07/06/23 18:04 BUN 13 mg/dL (6-20) 07/06/23 18:04 Creatinine 0.8 mg/dL (0.7-1. 2) 07/06/23 18:04 GFR Calculation 104.5 mL/min (90- 130) 07/06/23 18:04 Glucose 283 mg/dL (65-115 ) H 07/06/23 18:04 POC Glucose 276 mg/dL (70-110 ) H 07/10/23 08:05 Calculated Osmolal ity 294 mOsm/kg (285- 295) 07/06/23 18:04 Calcium 9.4 mg/dL (8.5-10 .5) 07/06/23 18:04 Total Bilirubin 0.2 mg/dL (0.15-1 .2) 07/06/23 18:04 AST 13 U/L (0-40) 07/06/23 18:04 ALT 21 U/L (0-41) 07/06/23 18:04 Alkaline Phosphata se 96 U/L (40-130) 07/06/23 18:04 Total Protein 6.8 g/dL (6.6-8.7 ) 07/06/23 18:04 Albumin 3.9 g/dL (3.5-5.2 ) 07/06/23 18:04 Globulin 2.9 g/dL (1.3-4.6 ) 07/06/23 18:04 Salicylates < 0.3 mg/dL (3-10 ) L 07/06/23 18:04 Urine Opiates Scre en Negative ng/mL (N egative) 07/07/23 20:00 Acetaminophen < 5.0 ug/mL (10-3 0) L 07/06/23 18:04 Ur Barbiturates Sc reen Negative ng/mL (N egative) 07/07/23 20:00 Ur Phencyclidine S crn Negative ng/mL (N egative) 07/07/23 20:00 Ur Amphetamines Sc reen Positive ng/mL (N egative) H 07/07/23 20:00 U Benzodiazepines Scrn Positive ng/mL (N egative) H 07/07/23 20:00 Urine Cocaine Scre en Negative ng/mL (N egative) 07/07/23 20:00 U Marijuana (THC) Screen Negative ng/mL (N egative) 07/07/23 20:00 Ethyl Alcohol < 10 mg/dL (0-10) 07/06/23 18:04 Vitals: Last Vital Signs Temp 98.4 F 07/09/23 20:45 Pulse 85 07/09/23 20:45 Resp 18 07/09/23 20:45 BP 117/78 07/09/23 20:45 Pulse Ox 96 07/09/23 20:45 O2 Del Method Room Air 07/09/23 20:45 Discharge Plan Discharge Patient Disposition: Home Condition: Stable Prescriptions: New trazodone 50 mg Tablet 50 mg PO BEDTIME PRN (Reason: Sleep) 30 Days Qty: 30 1RF Continued albuterol sulfate [Ventolin HFA] 90 mcg/actuation HFA aerosol inhaler 2 puff inhalation Q6H PRN (Reason: shortness of breath or wheezing) Qty: 8.5 0RF glipizide 10 mg tablet extended release 24hr 10 mg PO DAILY Qty: 30 11RF insulin glargine [Lantus Solostar U-100 Insulin] 100 unit/mL (3 mL) insulin pen 20 unit SUBCUT QAM Qty: 15 11RF (DME) Blood Glucose Test Strip See Rx Instructions .MEDSUPPLY Qty: 200 12RF Rx Instructions: Use as directed with glucometer to check blood sugar (DME) blood-glucose meter Misc See Rx Instructions .MEDSUPPLY Qty: 1 0RF Rx Instructions: Use as directed for checking blood sugar (DME) lancets Misc See Rx Instructions .MEDSUPPLY Qty: 200 12RF Rx Instructions: Use as directed to prick skin for blood sugar checks albendazole 200 mg tablet 200 mg PO .q2w Qty: 2 0RF No Action sulfamethoxazole-trimethoprim [Bactrim DS] 800-160 mg tablet 1 tab PO BID 7 Days Qty: 14 0RF propranolol 20 mg tablet 10 mg PO BID Qty: 60 11RF praziquantel 600 mg tablet 600 mg PO ONCE 1 Days Qty: 1 2RF Discharge Orders: Discharge Order (Routine); Ordered 07/10/23 Ordered By: Javier Avery Referrals: Pat Che [Therapist] - 07/13/23 9:30 am (Initial assessment for [facility]) Obie Sinha MD [Primary Care Provider] - Discharge Diet: Regular Discharge Activity: Resume usual activity Patient Instructions: Trazodone (By mouth), Methamphetamine Use Disorder (DC), Suicide Prevention (DC), Opioid Safety Discharge Attestations NPU Time Spent in Discharge Care*: less than 30 min Specific Discharge Activities: Specific discharge activities: educating patient, discussing with adult protective caseworker/social workers/dc planners, documenting/other paperwork and evaluating patient/reviewing data Coding Level of Care Code Acute Code for Chg Fwd Diagnoses Unspecified psychosis F29 Stimulant abuse F15.10 Depression, unspecified F32.A
[2023-07-10 13:34] VITALS: BP 117/78; PULSE 85; RESP 18; TEMP 36.9; O2SAT 96
== END 2023-07-10 13:58 | disposition home or self-care (01) | DRG 885 ==
LOC: ER 17:43 → NP 07-07 09:09
PROVIDERS: Admitting Provider Psychiatry & Neurology Psychiatry; Emergency Provider Emergency Medicine; PCP Family Medicine; Visit Provider Psychiatry & Neurology Psychiatry
DX: F29 Unspecified psychosis not due to a substance or known physiological condition (principal); R45.851 Suicidal ideations; F15.10 Other stimulant abuse, uncomplicated; F32.A Depression, unspecified; Z63.4 Disappearance and death of family member; R45.850 Homicidal ideations; F17.210 Nicotine dependence, cigarettes, uncomplicated
CPT/HCPCS: 36415; 36416; 80053; 80306; 80307; 82962; 85025; 96372; 97165; 99285; J1815

== ENCOUNTER 2023-07-25 14:24 | Emergency (ER) | payer OTHER, SELFPAY ==
--- NOTE | 2023-07-25 14:37 | ECG_ITS ---
[facility] Test Date: 2023-07-25 Pat Name: Jarett Hernandez (Chris) Department: Room: Gender: Male Insole Doubler: : 1980 Requested By: Marshal Garvey Order Number: [id number] Reading MD: Ponce Nava M.D. Measurements Intervals [place] Rate: 93 P: 6 RI: 132 QRS: 49 QRSD: 97 T: 49 QT: 354 QTc: 441 Interpretive Statements SINUS RHYTHM INTERPRETATION BASED ON A DEFAULT AGE OF 40 YEARS Compared to ECG 09/18/2017 09:02:15 No significant changes Electronically Signed On 07-26-2023 14:17:21 [employer]LEGE ADMISSIONS COUNSELOR by Ponce Nava M.D. [id number]
[2023-07-25 14:50] VITALS: BP 131/82; PULSE 93; RESP 16; TEMP 36.6; O2SAT 99; BMI 23.6
--- NOTE | 2023-07-25 17:29 | W.ED.CHESTPA ---
HPI - Chest Pain General: Chief Complaint: Chest Pain Stated Complaint: chest pain Time Seen by Provider: 07/25/23 14:57 History of Present Illness: This patient is a 43-year-old white male who presents to the emergency department stating that he has had a headache, fever, nausea, vomiting, diarrhea and a rash for the past couple of days. Patient has a history of insulin-dependent diabetes, hypertension, PTSD, anxiety and methamphetamine abuse. Associated symptoms: Reports nausea and vomiting Review of Systems General: Reports: 10 or more systems reviewed and unremarkable except in HPI and below GI: Reports: nausea, vomiting and diarrhea Skin/Breast: Reports: rash Neuro: Reports: headache(s) PFSH ED PFSH: Medical History Abdominal pain Anxiety Diabetes mellitus type 2, controlled Elevated liver function tests Physical Exam Const: COMMON NORMALS: no acute distress, patient oriented x3 and no limitations GENERAL APPEARANCE: cooperative and comfortable HENMT: COMMON NORMALS: normocephalic, atraumatic, Normal nasal mucous membranes and turbinates present, moist oral mucous membranes and oropharynx normal HEAD & SCALP: normal to inspection, normocephalic and atraumatic FACE & SINUS: normal facial exam NOSE: Normal nasal mucous membranes and turbinates present Eye: COMMON NORMALS: Equal, round and reactive pupils present, EOMs intact bilaterally and conjunctivae normal GENERAL EYE: appearance normal, both eyes and all related structures CONJUNCTIVA: Yes conjunctivae normal PUPIL: Yes Equal, round and reactive pupils present Neck/C-Spine: COMMON NORMALS: supple and no JVD Chest: COMMONS NORMALS: normal inspection of the chest Resp: COMMON NORMALS: normal respiratory effort and clear to auscultation bilaterally AUSCULTATION: clear to auscultation bilaterally Cardio: COMMON NORMALS: no JVD, regular rate, regular rhythm, No gallops present (Cardio), No murmurs present (Cardio) and No rub (Cardio) RATE: regular rate RHYTHM: regular rhythm GI: COMMON NORMALS: Normal to inspection, nondistended, normoactive bowel sounds present, Soft to palpation and non-tender AUSCULTATION: Yes normoactive bowel sounds PALPATION: Yes Soft to palpation : COMMON NORMALS: Yes no CVA tenderness BLADDER/KIDNEY EXAM: Yes no CVA tenderness Back/Pelvis: COMMON NORMALS: no CVA tenderness and thoracic and lumbar spine normal to inspection Extremity: COMMON NORMALS: normal to inspection Neuro: COMMON NORMALS: patient oriented x3 and CN's II-XII intact bilaterally Psych: COMMON NORMALS: mental status grossly normal, Normal thought process present and cooperative THOUGHT PROCESS: Normal thought process present Skin: OTHER: Multiple skin lesions noted diffusely about the body and face. They do appear to be consistent with that of methamphetamine abuse. Course Vital Signs: Vital signs: Vital Signs Temperature 97.9 F 07/25/23 14:50 Pulse Rate 93 07/25/23 14:50 Respiratory Rate 16 07/25/23 14:50 Blood Pressure 131/82 07/25/23 14:50 Pulse Oximetry 99 07/25/23 14:50 Oxygen Delivery Me thod Room Air 07/25/23 14:50 MDM - Chest Pain Medical Decision Making EKG revealed sinus rhythm with no ST segment abnormalities. I did order labs. Patient left prior to obtaining the labs. He did sign out AMA. No radiology studies performed this visit Discharge Plan Discharge Patient Disposition: Left Against Medical Advice Clinical Impression: Methamphetamine abuse Prescriptions: No Action sulfamethoxazole-trimethoprim [Bactrim DS] 800-160 mg tablet 1 tab PO BID 7 Days Qty: 14 0RF albuterol sulfate [Ventolin HFA] 90 mcg/actuation HFA aerosol inhaler 2 puff inhalation Q6H PRN (Reason: shortness of breath or wheezing) Qty: 8.5 0RF glipizide 10 mg tablet extended release 24hr 10 mg PO DAILY Qty: 30 11RF insulin glargine [Lantus Solostar U-100 Insulin] 100 unit/mL (3 mL) insulin pen 20 unit SUBCUT QAM Qty: 15 11RF (DME) Blood Glucose Test Strip See Rx Instructions .MEDSUPPLY Qty: 200 12RF Rx Instructions: Use as directed with glucometer to check blood sugar (DME) blood-glucose meter Misc See Rx Instructions .MEDSUPPLY Qty: 1 0RF Rx Instructions: Use as directed for checking blood sugar (DME) lancets Misc See Rx Instructions .MEDSUPPLY Qty: 200 12RF Rx Instructions: Use as directed to prick skin for blood sugar checks propranolol 20 mg tablet 10 mg PO BID Qty: 60 11RF praziquantel 600 mg tablet 600 mg PO ONCE 1 Days Qty: 1 0RF trazodone 50 mg Tablet 50 mg PO BEDTIME PRN (Reason: Sleep) 30 Days Qty: 30 1RF albendazole 200 mg tablet 200 mg PO .q2w Qty: 2 0RF Referrals: Obie Sinha MD [Primary Care Provider] - Coding Level of Care Code 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
== END 2023-07-25 15:15 | disposition left against medical advice (07) ==
PROVIDERS: Emergency Provider Emergency Medicine; PCP Family Medicine
DX: F15.10 Other stimulant abuse, uncomplicated (principal); Z53.29 Procedure and treatment not carried out because of patient's decision for other reasons; Z79.4 Long term (current) use of insulin; Z79.84 Long term (current) use of oral hypoglycemic drugs; E11.9 Type 2 diabetes mellitus without complications; L98.8 Other specified disorders of the skin and subcutaneous tissue
CPT/HCPCS: 93005; 99285

== ENCOUNTER 2023-11-04 21:57 | Emergency (ER) | payer OTHER, SELFPAY ==
[2023-11-04 22:03] VITALS: BP 145/105; PULSE 95; RESP 22; TEMP 36.5; O2SAT 98
--- NOTE | 2023-11-04 22:52 | W.ED.URI ---
HPI - URI/Sore Throat General: Chief Complaint: Upper Respiratory Infection Stated Complaint: sob coughing pain when breathing Time Seen by Provider: 11/04/23 22:52 History of Present Illness: 43-year-old male patient comes in today with nasal congestion and cough. Patient reports illness for last 3 to 4 days. Patient reports worsening symptoms over the last 24 hours. Patient appears nontoxic. Patient appears in no pain. Patient does have a history of diabetes. Review of Systems General: Reports: 10 or more systems reviewed and unremarkable except in HPI and below PFSH ED PFSH: Medical History Abdominal pain Anxiety Diabetes mellitus type 2, controlled Elevated liver function tests Physical Exam Const: COMMON NORMALS: alert HENMT: COMMON NORMALS: normocephalic HEAD & SCALP: normocephalic NOSE: Nasal discharge present MOUTH: Normal oral and palatal mucosa present THROAT: posterior oropharynx normal Neck/C-Spine: COMMON NORMALS: full ROM Chest: COMMONS NORMALS: normal inspection of the chest Resp: COMMON NORMALS: normal respiratory effort AUSCULTATION: rhonchi Cardio: COMMON NORMALS: regular rate and regular rhythm RATE: regular rate RHYTHM: regular rhythm Back/Pelvis: COMMON NORMALS: thoracic and lumbar spine normal to inspection Extremity: COMMON NORMALS: full ROM Neuro: SENSORIUM/ORIENTATION: Yes alert Skin: COMMON NORMALS: turgor normal GENERAL SKIN EXAM: turgor normal Course Vital Signs: Vital signs: Vital Signs Temperature 97.7 F 11/04/23 22:03 Pulse Rate 95 11/04/23 22:03 Respiratory Rate 22 H 11/04/23 22:03 Blood Pressure 145/105 11/04/23 22:03 Pulse Oximetry 98 11/04/23 22:03 Oxygen Delivery Me thod Room Air 11/04/23 22:03 MDM - URI/Sore Throat Medical Decision Making 43-year-old male patient comes in today for complaints of cough with congestion and sinus pressure. On exam patient has some sinus tenderness to palpation of the maxillary sinuses. Posterior pharynx is pink and moist. Lungs have good air movement throughout with occasional rhonchus sounds. Vital signs are normal except for some elevated blood pressure. Reviewed exam with patient with recommendation for treatment and follow-up. Patient reports understanding agreed to plan. No radiology studies performed this visit Discharge Plan Discharge Patient Disposition: Home Clinical Impression: Bronchitis Sinusitis Qualifiers: Sinusitis location: maxillary Chronicity: acute Recurrence: non-recurrent Qualified Code(s): J01.00 - Acute maxillary sinusitis, unspecified Condition: Stable Prescriptions: New doxycycline hyclate 100 mg capsule 100 mg PO BID 7 Days Qty: 14 0RF prednisone 20 mg tablet 20 mg PO BID 5 Days Qty: 10 0RF No Action sulfamethoxazole-trimethoprim [Bactrim DS] 800-160 mg tablet 1 tab PO BID 7 Days Qty: 14 0RF albuterol sulfate [Ventolin HFA] 90 mcg/actuation HFA aerosol inhaler 2 puff inhalation Q6H PRN (Reason: shortness of breath or wheezing) Qty: 8.5 0RF glipizide 10 mg tablet extended release 24hr 10 mg PO DAILY Qty: 30 11RF insulin glargine [Lantus Solostar U-100 Insulin] 100 unit/mL (3 mL) insulin pen 20 unit SUBCUT QAM Qty: 15 11RF (DME) Blood Glucose Test Strip See Rx Instructions .MEDSUPPLY Qty: 200 12RF Rx Instructions: Use as directed with glucometer to check blood sugar (DME) blood-glucose meter Misc See Rx Instructions .MEDSUPPLY Qty: 1 0RF Rx Instructions: Use as directed for checking blood sugar (DME) lancets Misc See Rx Instructions .MEDSUPPLY Qty: 200 12RF Rx Instructions: Use as directed to prick skin for blood sugar checks propranolol 20 mg tablet 10 mg PO BID Qty: 60 11RF praziquantel 600 mg tablet 600 mg PO ONCE 1 Days Qty: 1 2RF trazodone 50 mg Tablet 50 mg PO BEDTIME PRN (Reason: Sleep) 30 Days Qty: 30 1RF albendazole 200 mg tablet 200 mg PO .q2w Qty: 2 0RF Discharge Orders: Discharge ED (Routine); Ordered 11/04/23 Ordered By: Juwan Mondragon Referrals: Obie Sinha MD [Primary Care Provider] - Discharge Diet: Usual diet Discharge Activity: Increase activity as tolerated Patient Instructions: Rhinosinusitis (ED) Activity Restrictions/Additional Instructions: Take medication as directed. Follow-up with primary care for further instructions. Note that steroids will raise your blood sugar while you are using them, but it should return to normal once you come off the medication. Drink plenty of water and fluids with medications. Return to ED for new concerns or worsening symptoms such as increased shortness of breath, inability to hold fluids down, or severe chest pain. 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
[2023-11-04] MEDS: doxycycline 100 mg Tablet PO (23:16)
[2023-11-04] MEDS: predniSONE 20 mg Tablet 60 MG PO (23:16)
[2023-11-04] MEDS: oxymetazoline 0.05% Nasal Spray 15 mL 2 SPRAY NOSTRIL-B (23:17)
[2023-11-04 23:25] VITALS: BP 134/71; PULSE 91; RESP 16; O2SAT 95
== END 2023-11-04 23:26 | disposition home or self-care (01) ==
PROVIDERS: Emergency Provider Nurse Practitioner Family; PCP Family Medicine
DX: J40 Bronchitis, not specified as acute or chronic (principal); J01.00 Acute maxillary sinusitis, unspecified; Z79.84 Long term (current) use of oral hypoglycemic drugs; Z79.4 Long term (current) use of insulin; E11.9 Type 2 diabetes mellitus without complications
CPT/HCPCS: 99283; J7512

== ENCOUNTER → 2024-03-29 10:27 | Outpatient (BNVA) | payer OTHER, SELFPAY | PROVIDERS: PCP Family Medicine; Visit Provider Nurse Practitioner | DX: R05.9 Cough, unspecified (principal) | CPT/HCPCS: 87400; 87426 ==